=== PATIENT | female | born 1980 | race African-American/Black ===

== ENCOUNTER → 2019-01-19 | Outpatient (CLI) | payer OTHER ==
[~2019-01-19] MED LIST: ADIPEX-P37.5 M1 PO; ADVAIR 100-501 EACH; ADVAIR HFA 230M12 GM INH; ALLEGRA ALLERGY60 MG PO; ALLEGRA60 MG; COMBIVENT INH; GLUCOPHAGE XR500 MG PO; HYDROCHLOROTH12.5 MG PO; OSELB75 PO; SINGULAIR 10 MG10 M1 PO; TRAMADOL 50 MG50 MG PO; ULTRAM 50MG TAB50 MG PO; XYZAL5 MG PO; ZYRTEC10 M2 PO
== END ==
LOC: RAD 10:46
DX: R05 Cough (principal)

== ENCOUNTER 2021-10-26 11:23 | Emergency (ER) | payer MEDICARE, OTHER ==
[~2021-10-26] VITALS: Ht 177.8 cm; Wt 104.3 kg
[2021-10-26 12:34] LABS: ABSOLUTE NEUTROPHILS 6.6 thou/uL (1.4-8.2); BASOPHILS 0.5 % (0.0-2.0); EOSINOPHILS 0.3 % (0.0-3.0); HEMATOCRIT 42.5 % (37.0-47.0); HEMOGLOBIN 14.1 gm/dL (12.0-15.0); MCHC 33.1 g/dL (28.0-37.0); MCV 99.6 fL (80.0-100.0); MONOCYTES 5.4 % (1.0-8.0); PLATELET COUNT 186 thou/uL (150-400); POLYS 76.8 % (36.0-66.0); RBC 4.27 mil/uL (4.20-5.00); RDW 13.9 % (10.5-14.5); WBC 8.6 thou/uL (4.0-11.0)
[2021-10-26] MEDS ORDERED: BENTYL 10 MG CA10 MG PO (12:39)
[2021-10-26] MEDS ORDERED: NEXIUM2.5 MG PO (12:39)
[2021-10-26] MEDS ORDERED: CHILDREN'S ZYRT10 M1 PO (12:40)
[2021-10-26] MEDS ORDERED: TOPROL XL100 MG PO (12:40)
[2021-10-26] MEDS ORDERED: CHLORTHALIDONE25 MG PO (12:41)
[2021-10-26] MEDS ORDERED: LINZESS72 MCG PO (12:41)
[2021-10-26] MEDS ORDERED: COZAAR 25 MG TA25 M2 PO (12:41)
[2021-10-26 12:44] LABS: CALCIUM 9.1 mg/dL (8.5-10.1); CREATININE 1.1 mg/dL (0.6-1.0); POTASSIUM 4.2 mmol/L (3.5-5.1)
[2021-10-26 12:54] LABS: ALBUMIN 3.7 g/dL (3.4-5.0); TOTAL BILIRUBIN 0.4 mg/dL (0.2-1.0); TOTAL PROTEIN 7.9 g/dL (6.4-8.2)
[2021-10-26 13:08] LABS: PROTIME 10.9 Seconds (10.5-12.1)
--- NOTE | 2021-10-26 14:53 | EKG ---
[address] [place] [address] ELECTROCARDIOGRAM REPORT Name: ANALY OLIVER [id number] Admission: 10/26/21 Attend Phys: Discharge: Date of : 78 Report #: [id number] [facility] ED Test Date: 2021-10-26 Test Time: 14:50:36 Pat Name: ANAYL OLIVER Department: Room: Gender: F [employer] Driver: thaddeus montgomery : 1980 Requested By: Yeimy Connors Order Number: [id number] MD: Randy Whitehead Measurements Intervals [place] Rate: 59 P: 35 OR: 151 QRS: 38 QRSD: 90 T: 40 QT: 479 QTc: 475 Interpretive Statements Sinus rhythm Compared to ECG 11/15/2012 11:35:30 Sinus bradycardia no longer present Electronically Signed On 10-26-2021 14:53:30 [employer] by Randy Whitehead [email or web address] <ELECTRONICALLY SIGNED> By: Randy Whitehead MD, [facility] 10/26/21 1453 1450 1450 Randy Whitehead MD, FACC /EPI
[2021-10-26 14:57] VITALS: BP 219/87
[2021-10-26] MEDS ORDERED: ZOFRAN ODT4 MG PO (16:04)
== END 2021-10-26 16:00 | disposition home or self-care (01) ==
LOC: ER 11:23
PROVIDERS: Emergency Medicine
DX: U07.1 COVID-19 (principal); S09.90XA Unspecified injury of head, initial encounter; R07.89 Other chest pain; I10 Essential (primary) hypertension; E11.9 Type 2 diabetes mellitus without complications; J45.909 Unspecified asthma, uncomplicated; Z90.49 Acquired absence of other specified parts of digestive tract; Z79.84 Long term (current) use of oral hypoglycemic drugs; Z79.899 Other long term (current) drug therapy; Z79.891 Long term (current) use of opiate analgesic; Z88.5 Allergy status to narcotic agent; W20.8XXA Other cause of strike by thrown, projected or falling object, initial encounter; Y93.89 Activity, other specified; Y92.89 Other specified places as the place of occurrence of the external cause; Y99.8 Other external cause status